=== PATIENT | female | born 1995 | race Caucasian/White ===

== ENCOUNTER → 2018-05-22 16:06 | Outpatient (CLI) | payer OTHER, SELFPAY ==
[2018-05-22 17:51] LABS: Hepatitis B Surface Antigen NEGATIVE s/c (NEGATIVE)
[2018-05-22 18:08] LABS: Hep C Virus Ab w/Reflex Quant NEGATIVE s/c (NEGATIVE)
[2018-05-22 18:09] LABS: HIV 1 and 2 Antibody NEGATIVE (NEGATIVE)
[2018-05-30 14:01] LABS: Rapid Plasma Reagin NON-REACTIVE
== END ==
PROVIDERS: PCP Specialist; Visit Provider Specialist
DX: Z20.2 Contact with and (suspected) exposure to infections with a predominantly sexual mode of transmission (principal)
CPT/HCPCS: 36415; 86592; 86703; 86803; 87340